=== PATIENT | male | born 1965 | race Caucasian/White ===

== ENCOUNTER 2017-12-03 00:18 | Emergency (ER) | payer MEDICARE, OTHER ==
[2017-12-03 00:19] VITALS: BMI 29.0
[2017-12-03 00:37] VITALS: RESP 18
[2017-12-03 00:43] VITALS: TEMP 98; O2SAT 97
--- NOTE | 2017-12-03 01:06 | ED PDOC ---
Arrival/HPI - General Chief Complaint: High Blood Pressure Time Seen by Provider: 12/03/17 00:27 Historian: Patient, Family (Son) - History of Present Illness Narrative History of Present Illness (Text): 12/03/17 00:59 A 52 year old male, whose past medical history includes hypertension, presents to the emergency department with his son, who served as a infection control rn, complaining of an episode of high blood pressure s/p and argument with his this evening. The patient notes that he stopped taking blood pressure medication for the past 3-4 years. He states that he saw his PMD 10 days ago and was placed on Losartan because his blood pressure was high. The patient states that the medication made him tired and dropped his blood pressure too low , so he has not taken it since then. This evening, he and his had an argument and states that he became red in the face. His son took his blood pressure which was 160/110 at the time. He states that his blood pressure came down and he feels almost back to normal. His blood pressure was 167/93 upon arrival to the emergency department. The patient states that he has an appointment with his PMD for new blood pressure medication tomorrow. The patient denies fevers, chills, headache, dizziness, chest pain, shortness of breath, dyspnea on exertion, cough, abdominal pain, nausea, vomiting, diarrhea, back pain, neck pain, urinary/bowel changes, or any other complaint. PMD: Dr. Mac Rose Time/Duration: Prior to Arrival Symptom Onset: Sudden Symptom Course: Unchanged Activities at Onset: Rest, Light Context: Home Past Medical History - Provider Review Nursing Documentation Reviewed: Yes - Infectious Disease Hx of Infectious Diseases: None - Tetanus Immunization Tetanus Immunization: Unknown - Cardiac Hx Hypertension: Yes - Pulmonary Hx Respiratory Disorders: No - Neurological Hx Neurological Disorder: No - HEENT Hx HEENT Disorder: No - Renal Hx Renal Disorder: Yes Hx Kidney Stones: Yes (multiple 0.5 mm which have passed .) - Endocrine/Metabolic Hx Endocrine Disorders: No - Hematological/Oncological Hx Blood Disorders: No - Integumentary Hx Dermatological Disorder: No - Musculoskeletal/Rheumatological Hx Musculoskeletal Disorders: No - Gastrointestinal Hx Gastrointestinal Disorders: No - Genitourinary/Gynecological Hx Genitourinary Disorders: No - Psychiatric Hx Psychophysiologic Disorder: No Hx Anxiety: No Hx Bipolar Disorder: No Hx Depression: No Hx Emotional Abuse: No Hx Hallucinations: No Hx Panic Disorder: No Hx Post Traumatic Stress Disorder: No Hx Psychosis: No Hx Physical Abuse: No Hx Schizophrenia: No Hx Sexual Abuse: No Hx Substance Use: No - Surgical History Hx Cholecystectomy: Yes Hx Coronary Artery Bypass Graft: Yes (quadruple bypass x4) - Anesthesia Hx Anesthesia: Yes Hx Anesthesia Reactions: No Hx Malignant Hyperthermia: No - Suicidal Assessment Feels Threatened In Home Enviroment: No Family/Social History - Physician Review Nursing Documentation Reviewed: Yes Family/Social History: No Known Family HX Smoking Status: Never Smoked Hx Alcohol Use: No Hx Substance Use: No Hx Substance Use Treatment: No Allergies/Home Meds Allergies/Adverse Reactions: Allergies No Known Allergies Allergy (Verified 12/03/17 00:38) Home Medications: Home Meds Medication Instructions Recorded Confirmed Aspirin [Aspirin Chewable] 81 mg PO DAILY 01/01/16 12/03/17 Simvastatin [Zocor] 40 mg PO DAILY 01/01/16 12/03/17 Gemfibrozil 600 mg PO BID 09/09/16 12/03/17 Losartan Potassium 50 mg PO DAILY 12/03/17 12/03/17 Review of Systems - Physician Review All systems were reviewed & negative as marked: Yes - Review of Systems Constitutional: Other (High Blood Pressure). absent: Fevers, Night Sweats Respiratory: absent: SOB, Cough Cardiovascular: absent: Chest Pain, CHANDLER Gastrointestinal: absent: Abdominal Pain, Stool Changes, Diarrhea, Nausea, Vomiting Genitourinary Male: absent: Urinary Output Changes Musculoskeletal: absent: Back Pain, Neck Pain Neurological: absent: Headache, Dizziness Physical Exam Vital Signs Reviewed: Yes Vital Signs Temp Pulse Resp BP Pulse Ox 12/03/17 01:47 61 18 132/79 97 12/03/17 01:10 65 132/79 12/03/17 00:42 98.0 F 67 18 159/96 H 97 12/03/17 00:31 74 18 172/95 H 100 Temperature: Afebrile Blood Pressure: Hypertensive Pulse: Regular Respiratory Rate: Normal Appearance: Positive for: Well-Appearing, Non-Toxic, Comfortable Pain Distress: None Mental Status: Positive for: Alert and Oriented X 3 - Systems Exam Head: Present: Atraumatic, Normocephalic Pupils: Present: PERRL Extroacular Muscles: Present: EOMI Conjunctiva: Present: Normal Mouth: Present: Moist Mucous Membranes Neck: Present: Normal Range of Motion Respiratory/Chest: Present: Clear to Auscultation, Good Air Exchange. No: Respiratory Distress, Accessory Muscle Use Cardiovascular: Present: Regular Rate and Rhythm, Normal S1, S2. No: Murmurs Abdomen: No: Tenderness, Distention, Peritoneal Signs Back: Present: Normal Inspection Upper Extremity: Present: Normal Inspection. No: Cyanosis, Edema Lower Extremity: Present: Normal Inspection. No: Edema Neurological: Present: GCS=15, CN II-XII Intact, Speech Normal Skin: Present: Warm, Dry, Normal Color. No: Rashes Psychiatric: Present: Alert, Oriented x 3, Normal Insight, Normal Concentration Medical Decision Making ED Course and Treatment: 12/03/17 01:07 Impression: A 52 year old male presents to the emergency department complaining of an episode of high blood pressure this evening. Plan: -- Chest X-ray -- Labs -- Catapres -- Reassess and disposition Progress Notes: 12/03/17 02:24: Chest X-ray read and interpreted by me shows no acute processes. 12/03/17 02:25: Patient's labs are normal. Patient's blood pressure has decreased while in the emergency department with medications. Will discharge patient home. 12/03/17 02:29 EKG: Ordered, reviewed, and independently interpreted the EKG. Rate : 59 BPM Rhythm : Sinus Bradycardia - Lab Interpretations Lab Results: 12/03/17 01:40 12/03/17 01:40 Lab Results 12/03/17 01:40: Sodium 146, Potassium 3.8, Chloride 108 H, Carbon Dioxide 25, Anion Gap 17, BUN 12, Creatinine 0.9, Est GFR ( Amer) > 60, Est GFR (Non- Af Amer) > 60, Random Glucose 100, Calcium 9.0, Total Bilirubin 0.9, AST 31, ALT 46, Alkaline Phosphatase 55, Lactate Dehydrogenase 465, Total Creatine Kinase 117, Troponin I < 0.01 D, Total Protein 6.8, Albumin 4.3, Globulin 2.5, Albumin/Globulin Ratio 1.7 12/03/17 01:40: PT 12.6 H, INR 1.10 H 12/03/17 01:40: WBC 5.7, RBC 4.85, Hgb 14.2, Hct 40.8 L, MCV 84.1, MCH 29.3, MCHC 34.8, RDW 12.7, Plt Count 131, MPV 10.9, Gran % 52.6, Lymph % (Auto) 37.5 H , [place] % (Auto) 8.1 H, Eos % (Auto) 1.4 L, Baso % (Auto) 0.4, Gran # 2.98, Lymph # (Auto) 2.1, [place] # (Auto) 0.5, Eos # (Auto) 0.1, Baso # (Auto) 0.02 I have reviewed the lab results: Yes - RAD Interpretation Radiology Orders: 12/03/17 00:51 CHEST PORTABLE [RAD] Stat - Medication Orders Current Medication Orders: Discontinued Medications Clonidine HCl (Catapres) 0.2 mg PO STAT STA Stop: 12/03/17 00:51 Last Admin: 12/03/17 01:10 Dose: 0.2 mg MAR Pulse and Blood Pressure Document 12/03/17 01:10 RG (Rec: 12/03/17 01:43 RG [facility] [id number] Pulse Pulse Rate (60-90 beats/min) 65 Blood Pressure Blood Pressure (100/60-150/90 mm Hg) 132/79 - Scribe Statement The provider has reviewed the documentation as recorded by the Scribe Netta Jasso Provider Scribe Attestation: All medical record entries made by the Scribe were at my direction and personally dictated by me. I have reviewed the chart and agree that the record accurately reflects my personal performance of the history, physical exam, medical decision making, and the department course for this patient. I have also personally directed, reviewed, and agree with the discharge instructions and disposition. Disposition/Present on Arrival - Present on Arrival Any Indicators Present on Arrival: No History of DVT/PE: No History of Uncontrolled Diabetes: No Urinary Catheter: No History of Decub. Ulcer: No History Surgical Site Infection Following: None - Disposition Have Diagnosis and Disposition been Completed?: Yes Diagnosis: Uncontrolled hypertension Disposition: HOME/ ROUTINE Disposition Time: :43 Patient Plan: Discharge Condition: GOOD Discharge Instructions (ExitCare): High Blood Pressure (DC) Additional Instructions: Mr Jain - Elkin you are going through all this right now. Please see your doctor tomorrow and get a new prescription for your Blood Pressure. Return to us if any problems. Timmy- Dr. Evan Judge Forms: [employer] (Swedish)
[2017-12-03 01:43] VITALS: BP 132/79
[2017-12-03 01:48] VITALS: PULSE 61
[2017-12-03 01:51] LABS: BASO # 0.02 K/mm3 (0.0-2.0); BASO % 0.4 % (0.0-3.0); EOS # 0.1 (0.0-0.7); EOS % 1.4 % (1.5-5.0); GRAN # 2.98 (1.4-6.5); GRAN % 52.6 % (50.0-68.0); HEMOGLOBIN 14.2 g/dL (14.0-18.0); LYMPH # 2.1 (1.2-3.4); LYMPH % 37.5 % (22.0-35.0); MEAN CELL VOLUME 84.1 fl (80.0-105.0); MEAN CORPUSCULAR HEMOGLOBIN 29.3 pg (25.0-35.0); MEAN CORPUSCULAR HGB CONC 34.8 g/dl (31.0-37.0); MEAN PLATELET VOLUME 10.9 fl (7.0-11.0); MONO # 0.5 (0.1-0.6); MONO % 8.1 % (1.0-6.0); RBC 4.85 10^6/uL (3.5-6.1); RED CELL DISTRIBUTION WIDTH 12.7 % (11.5-14.5); WHITE BLOOD COUNT 5.7 10^3/ul (4.5-11.0)
[2017-12-03 02:03] LABS: ALB/GLOB RATIO 1.7 (1.1-1.8); ALBUMIN 4.3 g/dL (3.0-4.8); ALT/SGPT 46 U/L (7-56); AST/SGOT 31 U/L (17-59); BLOOD UREA NITROGEN 12 mg/dL (7-21); GFR AFRICAN-AMERICAN > 60; GFR NON-AFRICAN AMERICAN > 60
[2017-12-03 02:12] LABS: INR 1.1 (0.93-1.08); PROTHROMBIN TIME 12.6 SECONDS (9.4-12.5)
[2017-12-03 02:14] LABS: TROPONIN I < 0.01 ng/mL
--- NOTE | 2017-12-03 08:45 | RAD ---
HISTORY: uncontrolled hypertension COMPARISON: 10/23/2014 FINDINGS: LUNGS: The lungs are clear. PLEURA: No significant pleural effusion identified, no pneumothorax apparent. CARDIOVASCULAR: The heart is normal in size. Status post CABG with OSSEOUS STRUCTURES: No significant abnormalities. VISUALIZED UPPER ABDOMEN: Normal. OTHER FINDINGS: None. IMPRESSION: No acute findings.
--- NOTE | 2017-12-03 13:52 | CARD ---
APPROVED REPORT EKG Measurement Heart [id number] [id number] <Conclusion> Sinus bradycardia RSR' or QR pattern in V1 suggests right ventricular conduction delay Borderline ECG
== END 2017-12-03 02:50 | disposition home or self-care (01) ==
LOC: ED 00:18
DX: I10 Essential (primary) hypertension (principal); Z95.1 Presence of aortocoronary bypass graft

== ENCOUNTER 2018-02-01 16:02 | Emergency (ER) | payer MEDICARE, OTHER ==
[2018-02-01 16:02] VITALS: BMI 29.0
[2018-02-01 16:11] VITALS: RESP 18; TEMP 98.7
[2018-02-01 17:12] LABS: BASO # 0.01 K/mm3 (0.0-2.0); BASO % 0.2 % (0.0-3.0); EOS # 0.1 (0.0-0.7); EOS % 1.3 % (1.5-5.0); GRAN # 3.19 (1.4-6.5); GRAN % 60.5 % (50.0-68.0); LYMPH # 1.6 (1.2-3.4); MEAN CELL VOLUME 84.6 fl (80.0-105.0); MEAN CORPUSCULAR HEMOGLOBIN 29.2 pg (25.0-35.0); MEAN CORPUSCULAR HGB CONC 34.6 g/dl (31.0-37.0); MEAN PLATELET VOLUME 11.4 fl (7.0-11.0); MONO # 0.4 (0.1-0.6); RBC 5.13 10^6/uL (3.5-6.1); RED CELL DISTRIBUTION WIDTH 12.6 % (11.5-14.5); URINE BILIRUBIN NEGATIVE (NEGATIVE); URINE BLOOD NEGATIVE (NEGATIVE); URINE GLUCOSE (UA) NEGATIVE (NEGATIVE); URINE LEUKOCYTE ESTERASE NEGATIVE Leu/uL (NEGATIVE); URINE PROTEIN NEGATIVE mg/dL (<30 mg/dL); URINE UROBILINOGEN 0.2 E.U./dL (<1 E.U./dL); WHITE BLOOD COUNT 5.3 10^3/ul (4.5-11.0)
[2018-02-01 17:13] LABS: URINE APPEARANCE CLEAR (CLEAR); URINE COLOR YELLOW (YELLOW)
--- NOTE | 2018-02-01 17:16 | ED PDOC ---
Arrival/HPI - General Chief Complaint: High Blood Pressure Time Seen by Provider: 02/01/18 16:12 Historian: Patient - History of Present Illness Narrative History of Present Illness (Text): 02/01/18 17:21 52yo male with pmhx of hypertension on Enalapril presnt with complaint of elevated BP. states he became nauseous and started having burning abdominal pain after eating Falafal this morning. States he bought it and thinks it was spoilt. He checked his BP then and it was 180/110. He reports taking his BP at 1300 this afternoon before checking his BP. States he put his finger and forced himself to vomit while he was in ED and felt a little better. He denies chest pain, SOB, diaphoresis, diarrhea, melena, hematemesis, back pain, headache, focal weakness, urinary/fecal incontinence, any other complaint. Past Medical History - Provider Review Nursing Documentation Reviewed: Yes - Infectious Disease Hx of Infectious Diseases: None - Tetanus Immunization Tetanus Immunization: Unknown - Cardiac Hx Hypertension: Yes - Pulmonary Hx Respiratory Disorders: No - Neurological Hx Neurological Disorder: No - HEENT Hx HEENT Disorder: No - Renal Hx Renal Disorder: Yes Hx Kidney Stones: Yes (multiple 0.5 mm which have passed .) - Endocrine/Metabolic Hx Endocrine Disorders: No - Hematological/Oncological Hx Blood Disorders: No - Integumentary Hx Dermatological Disorder: No - Musculoskeletal/Rheumatological Hx Musculoskeletal Disorders: No - Gastrointestinal Hx Gastrointestinal Disorders: No - Genitourinary/Gynecological Hx Genitourinary Disorders: No - Psychiatric Hx Psychophysiologic Disorder: No Hx Substance Use: No - Surgical History Hx Cholecystectomy: Yes Hx Coronary Artery Bypass Graft: Yes (quadruple bypass x4) Hx Open Heart Surgery: Yes - Anesthesia Hx Anesthesia: Yes Hx Anesthesia Reactions: No Hx Malignant Hyperthermia: No - Suicidal Assessment Feels Threatened In Home Enviroment: No Family/Social History - Physician Review Nursing Documentation Reviewed: Yes Family/Social History: Unknown Family HX Smoking Status: Never Smoked Hx Alcohol Use: No Hx Substance Use: No Hx Substance Use Treatment: No Allergies/Home Meds Allergies/Adverse Reactions: Allergies No Known Allergies Allergy (Verified 02/01/18 16:12) Home Medications: Home Meds Medication Instructions Recorded Confirmed Simvastatin [Zocor] 40 mg PO DAILY 01/01/16 02/01/18 Gemfibrozil 600 mg PO BID 09/09/16 02/01/18 Enalapril Maleate [Vasotec] 1 tab PO DAILY 02/01/18 02/01/18 Review of Systems - Physician Review All systems were reviewed & negative as marked: Yes - Review of Systems Constitutional: Normal, Other (Elevated BP) Eyes: Normal ENT: Normal Respiratory: Normal Cardiovascular: Normal Gastrointestinal: Abdominal Pain, Nausea, Vomiting. absent: Constipation, Diarrhea, Hematochezia, Hematemesis Genitourinary Male: Normal Musculoskeletal: Normal Skin: Normal Neurological: Normal Endocrine: Normal Hemo/Lymphatic: Normal Psychiatric: Normal Physical Exam Vital Signs Reviewed: Yes Vital Signs Temp Pulse Resp BP Pulse Ox 02/01/18 17:44 72 18 147/73 99 02/01/18 16:53 84 161/100 H 02/01/18 16:07 98.7 F 84 18 161/100 H 98 Temperature: Afebrile Blood Pressure: Hypertensive Pulse: Regular Respiratory Rate: Normal Appearance: Positive for: Well-Appearing, Non-Toxic, Comfortable Pain Distress: None Mental Status: Positive for: Alert and Oriented X 3 - Systems Exam Head: Present: Atraumatic, Normocephalic Pupils: Present: PERRL Extroacular Muscles: Present: EOMI Conjunctiva: Present: Normal Mouth: Present: Moist Mucous Membranes Neck: Present: Normal Range of Motion Respiratory/Chest: Present: Clear to Auscultation, Good Air Exchange. No: Respiratory Distress, Accessory Muscle Use Cardiovascular: Present: Regular Rate and Rhythm, Normal S1, S2. No: Murmurs Abdomen: Present: Other (Soft). No: Tenderness, Distention, Peritoneal Signs, Rebound, Guarding, McBurney's Point Tender, Rovsing's Sign Present Back: Present: Normal Inspection Upper Extremity: Present: Normal Inspection. No: Cyanosis, Edema Lower Extremity: Present: Normal Inspection. No: Edema Neurological: Present: GCS=15, CN II-XII Intact, Speech Normal Skin: Present: Warm, Dry, Normal Color. No: Rashes Psychiatric: Present: Alert, Oriented x 3, Normal Insight, Normal Concentration Medical Decision Making ED Course and Treatment: 02/01/18 18:11 pt present to ED for stated history. He was hemodynamically stable and neurologically intact. He denied headache, CP, slurred speech, focal weakness in ED. His BP improved to 131/70 in ED with medication. His lab was unremarkable. He states he feels much better. He was advised to f/u with his PMD for possible change or increase of her antihypertensive dose. EKG NSR with incomplete RBBB @79bpm CXR NAD - Lab Interpretations Lab Results: 02/01/18 17:05 02/01/18 17:05 Lab Results 02/01/18 17:05: Sodium 144, Potassium 3.7, Chloride 106, Carbon Dioxide 26, Anion Gap 16, BUN 10, Creatinine 0.8, Est GFR ( Amer) > 60, Est GFR (Non- Af Amer) > 60, Random Glucose 160 H, Calcium 9.4, Magnesium 2.2, Total Bilirubin 0.9, AST 25, ALT 41, Alkaline Phosphatase 51, Lactate Dehydrogenase 413, Total Creatine Kinase 83, Troponin I < 0.01, Total Protein 7.2, Albumin 4.5 , Globulin 2.8, Albumin/Globulin Ratio 1.6, Lipase 64 02/01/18 17:05: Urine Color Yellow, Urine Appearance Clear, Urine pH 6.0, Ur Specific [place] <= 1.005, Urine Protein Negative, Urine Glucose (UA) Negative, Urine Ketones Negative, Urine Blood Negative, Urine Nitrate Negative, Urine Bilirubin Negative, Urine Urobilinogen 0.2, Ur Leukocyte Esterase Negative 02/01/18 17:05: PT 12.2, INR 1.07, APTT 29.6 02/01/18 17:05: WBC 5.3, RBC 5.13, Hgb 15.0, Hct 43.4, MCV 84.6, MCH 29.2, MCHC 34.6, RDW 12.6, Plt Count 126, MPV 11.4 H, Gran % 60.5, Lymph % (Auto) 30.0, [place] % (Auto) 8.0 H, Eos % (Auto) 1.3 L, Baso % (Auto) 0.2, Gran # 3.19, Lymph # (Auto) 1.6, [place] # (Auto) 0.4, Eos # (Auto) 0.1, Baso # (Auto) 0.01 - RAD Interpretation Radiology Orders: 02/01/18 16:35 CHEST PORTABLE [RAD] Stat - Medication Orders Current Medication Orders: Discontinued Medications Clonidine HCl (Catapres) 0.2 mg PO STAT STA Stop: 02/01/18 16:37 Last Admin: 02/01/18 16:53 Dose: 0.2 mg MAR Pulse and Blood Pressure Document 02/01/18 16:53 OCS (Rec: 02/01/18 16:53 OCS [id number]) Pulse Pulse Rate (60-90) 84 Blood Pressure Blood Pressure (100/60-150/90) 161/100 Famotidine (Pepcid) 20 mg IVP STAT STA Stop: 02/01/18 16:37 Last Admin: 02/01/18 16:53 Dose: 20 mg IVP Administration Document 02/01/18 16:53 OCS (Rec: 02/01/18 16:53 OCS [id number]) Charges for Administration # of IVP Administrations 1 Ondansetron HCl (Zofran Inj) 4 mg IVP STAT STA Stop: 02/01/18 17:32 Last Admin: 02/01/18 17:58 Dose: 4 mg IVP Administration Document 02/01/18 17:58 OCS (Rec: 02/01/18 17:59 OCS [id number]) Charges for Administration # of IVP Administrations 1 Disposition/Present on Arrival - Present on Arrival Any Indicators Present on Arrival: No History of DVT/PE: No History of Uncontrolled Diabetes: No Urinary Catheter: No History of Decub. Ulcer: No History Surgical Site Infection Following: None - Disposition Have Diagnosis and Disposition been Completed?: Yes Diagnosis: Hypertension, Abdominal pain Disposition: HOME/ ROUTINE Disposition Time: 18:10 Patient Plan: Discharge Condition: STABLE Discharge Instructions (ExitCare): Acute Abdomen (Belly Pain), Adult (DC), High Blood Pressure in Adults Additional Instructions: Follow up with your Doctor Return to ED for any new symptoms Referrals: Rose Watts MD [Family Provider] - Follow up with primary Forms: [employer] (Beninese)
[2018-02-01 17:21] LABS: ALB/GLOB RATIO 1.6 (1.1-1.8); ALBUMIN 4.5 g/dL (3.0-4.8); ALT/SGPT 41 U/L (7-56); AST/SGOT 25 U/L (17-59); BLOOD UREA NITROGEN 10 mg/dL (7-21); CALCIUM 9.4 mg/dL (8.4-10.5); GFR AFRICAN-AMERICAN > 60; GFR NON-AFRICAN AMERICAN > 60; LIPASE 64 U/L (23-300)
[2018-02-01 17:30] LABS: INR 1.07 (0.93-1.08); PARTIAL THROMBOPLASTIN TIME 29.6 Seconds (25.1-36.5); PROTHROMBIN TIME 12.2 SECONDS (9.4-12.5)
[2018-02-01 17:31] LABS: TROPONIN I < 0.01 ng/mL
[2018-02-01 18:31] VITALS: BP 125/70; PULSE 68; O2SAT 96
--- NOTE | 2018-02-01 18:32 | RAD ---
HISTORY: palpitation COMPARISON: 12/03/2017 FINDINGS: LUNGS: No active pulmonary disease. PLEURA: No significant pleural effusion identified, no pneumothorax apparent. CARDIOVASCULAR: Normal. OSSEOUS STRUCTURES: No significant abnormalities. VISUALIZED UPPER ABDOMEN: Normal. OTHER FINDINGS: None. IMPRESSION: No active disease.
--- NOTE | 2018-02-02 08:13 | CARD ---
APPROVED REPORT EKG Measurement Heart [id number] [id number] <Conclusion> Normal sinus rhythm Incomplete right bundle branch block LAHB Nonspecific ST and T wave abnormality Abnormal ECG
== END 2018-02-01 18:25 | disposition home or self-care (01) ==
LOC: ED 16:02
DX: I10 Essential (primary) hypertension (principal); R10.9 Unspecified abdominal pain; Z95.1 Presence of aortocoronary bypass graft
CPT/HCPCS: 71045; 80053; 81003; 82550; 83615; 83690; 83735; 84484; 85025; 85610; 85730; 93005; 96374; 96375; 99283; J2405

== ENCOUNTER 2018-09-15 21:45 | Observation (INO) | payer MEDICARE, MEDICAID ==
[2018-09-15 22:13] LABS: BASO # 0.01 K/mm3 (0.0-2.0); BASO % 0.2 % (0.0-3.0); EOS # 0.1 (0.0-0.7); EOS % 2.2 % (1.5-5.0); HEMOGLOBIN 14.4 g/dL (14.0-18.0); LYMPH # 2.2 (1.2-3.4); MEAN CORPUSCULAR HEMOGLOBIN 28.4 pg (25.0-35.0); MEAN CORPUSCULAR HGB CONC 34.2 g/dl (31.0-37.0); MEAN PLATELET VOLUME 11.5 fl (7.0-11.0); MONO # 0.6 (0.1-0.6); MONO % 10.6 % (1.0-6.0); RBC 5.07 10^6/uL (3.5-6.1); RED CELL DISTRIBUTION WIDTH 13.7 % (11.5-14.5); WHITE BLOOD COUNT 5.4 10^3/uL (4.5-11.0)
[2018-09-15 22:23] LABS: ALB/GLOB RATIO 1.6 (1.1-1.8); ALBUMIN 4.5 g/dL (3.0-4.8); ALT/SGPT 53 U/L (7-56); AST/SGOT 32 U/L (17-59); BLOOD UREA NITROGEN 14 mg/dL (7-21); CALCIUM 9.6 mg/dL (8.4-10.5); GFR NON-AFRICAN AMERICAN > 60
[2018-09-15 22:33] LABS: TROPONIN I < 0.01 ng/mL
--- NOTE | 2018-09-15 22:53 | ED PDOC ---
Arrival/HPI <SantaJohny - Last Filed: 09/15/18 23:02> - General Historian: Patient - History of Present Illness Narrative History of Present Illness (Text): 09/15/18 23:54 53-year-old male with a history of hypertension and hyperlipidemia and open heart surgery 5 years ago presents today with a sudden onset of left-sided chest pain radiating into the left arm and tightness in the left jaw. Patient states the chest pain started after getting into a verbal argument with his son over grades. Patient states he took one aspirin early this afternoon and 2 aspirin's when he developed the chest pain. Patient states he also took his blood pressure medication when he developed chest pain about 30-45 minutes prior to arrival. Patient denies abdominal pain. No nausea vomiting diarrhea or constipation. Patient denies shortness of breath. Patient states he is feeling better in the emergency room and denies chest pain at present time. <Di Jackman - Last Filed: 09/16/18 00:01> - General Chief Complaint: Chest Pain Time Seen by Provider: 09/15/18 21:50 Past Medical History - Provider Review Nursing Documentation Reviewed: Yes - Travel History Have you recently traveled outside [place] w/in the past 3 mons?: No - Infectious Disease Hx of Infectious Diseases: None - Tetanus Immunization Tetanus Immunization: Unknown - Cardiac Hx Hypertension: Yes - Pulmonary Hx Respiratory Disorders: No - Neurological Hx Neurological Disorder: No - HEENT Hx HEENT Disorder: No - Renal Hx Renal Disorder: Yes Hx Kidney Stones: Yes (multiple 0.5 mm which have passed .) - Endocrine/Metabolic Hx Endocrine Disorders: No - Hematological/Oncological Hx Blood Disorders: No - Integumentary Hx Dermatological Disorder: No - Musculoskeletal/Rheumatological Hx Musculoskeletal Disorders: No - Gastrointestinal Hx Gastrointestinal Disorders: No - Genitourinary/Gynecological Hx Genitourinary Disorders: No - Psychiatric Hx Psychophysiologic Disorder: No Hx Substance Use: No - Surgical History Hx Cholecystectomy: Yes Hx Coronary Artery Bypass Graft: Yes (quadruple bypass x4) Hx Open Heart Surgery: Yes - Anesthesia Hx Anesthesia: Yes Hx Anesthesia Reactions: No Hx Malignant Hyperthermia: No - Suicidal Assessment Feels Threatened In Home Enviroment: No <Di Jackman - Last Filed: 09/16/18 00:01> Family/Social History - Physician Review Nursing Documentation Reviewed: Yes Family/Social History: Unknown Family HX Smoking Status: Never Smoked Hx Alcohol Use: No Hx Substance Use: No Hx Substance Use Treatment: No <Di Jackman - Last Filed: 09/16/18 00:01> Allergies/Home Meds <SantaJohny - Last Filed: 09/15/18 23:02> <Di Jackman Rober - Last Filed: 09/16/18 00:01> Allergies/Adverse Reactions: Allergies No Known Allergies Allergy (Verified 02/01/18 16:12) Home Medications: Home Meds Medication Instructions Recorded Confirmed Simvastatin [Zocor] 40 mg PO DAILY 01/01/16 02/01/18 Gemfibrozil 600 mg PO BID 09/09/16 02/01/18 Enalapril Maleate [Vasotec] 1 tab PO DAILY 02/01/18 02/01/18 Review of Systems - Review of Systems Constitutional: absent: Fatigue, Fevers Respiratory: absent: SOB, Cough Cardiovascular: Chest Pain, Palpitations Gastrointestinal: absent: Abdominal Pain, Nausea, Vomiting Musculoskeletal: Arthralgias (left arm pain). absent: Back Pain, Neck Pain Skin: absent: Rash, Pruritis Neurological: absent: Headache, Dizziness Endocrine: Diaphoresis Psychiatric: absent: Anxiety, Depression, Suicidal Ideation <Di Jackman - Last Filed: 09/16/18 00:01> Physical Exam Vital Signs Temp Pulse Resp BP Pulse Ox 09/15/18 21:58 98.5 F 67 18 146/94 H 96 <SantaJohny - Last Filed: 09/15/18 23:02> Vital Signs Reviewed: Yes Vital Signs Temp Pulse Resp BP Pulse Ox 09/15/18 21:58 98.5 F 67 18 146/94 H 96 Temperature: Afebrile Blood Pressure: Hypertensive Pulse: Regular Respiratory Rate: Normal Appearance: Positive for: Well-Appearing, Non-Toxic, Comfortable Pain Distress: None Mental Status: Positive for: Alert and Oriented X 3 - Systems Exam Head: Present: Atraumatic Mouth: Present: Moist Mucous Membranes Neck: Present: Normal Range of Motion Respiratory/Chest: Present: Clear to Auscultation, Good Air Exchange. No: Respiratory Distress, Accessory Muscle Use Cardiovascular: Present: Regular Rate and Rhythm, Normal S1, S2. No: Murmurs Abdomen: No: Tenderness, Distention, Rebound, Guarding Back: Present: Normal Inspection Upper Extremity: Present: Normal ROM Lower Extremity: Present: Normal ROM. No: Edema Neurological: Present: GCS=15 Skin: Present: Warm, Dry, Normal Color. No: Rashes Psychiatric: Present: Alert, Oriented x 3 <Di Jackman - Last Filed: 09/16/18 00:01> Medical Decision Making - Lab Interpretations Lab Results: Troponin I < 0.01 ng/mL 09/15/18 22:09 Total Bilirubin 1.0 mg/dL (0.2-1.3) 09/15/18 22:09 AST 32 U/L (17-59) 09/15/18 22:09 ALT 53 U/L (7-56) 09/15/18 22:09 Alkaline Phosphatase 64 U/L (38-126) 09/15/18 22:09 Total Protein 7.3 g/dL (5.8-8.3) 09/15/18 22:09 Albumin 4.5 g/dL (3.0-4.8) 09/15/18 22:09 Globulin 2.8 gm/dL 09/15/18 22:09 Albumin/Globulin Ratio 1.6 (1.1-1.8) 09/15/18 22:09 - RAD Interpretation Radiology Orders: 09/15/18 22:05 CHEST PORTABLE [RAD] Stat <SantaJohny - Last Filed: 09/15/18 23:02> ED Course and Treatment: 09/15/18 23:57 pt with chest pain left arm pain and left-sided jaw tightness status post verbal argument with his son. slightly hypertensive in the emergency room cbc; wnl cmp; wnl trop: wnl ekg; normal sinus rhythm at [address] elevations QTC 394 cxr: wnl pt took 3 baby Aspirins today. Two prior to arrival to Er. pt reassessment; pt is non toxic well appearing; no distress. denies any complaints at present time. case discussed with Dr. murdock. will Admit observational status to Tele for chest pain r/o acs as patient with hx of open-heart surgery/quadruple bypass, hypertension, hyperlipidemia impression; chest pain Admit observational status to tele; Dr. Salazar Reassessment Condition: Re-examined, Improved - Lab Interpretations Lab Results: Troponin I < 0.01 ng/mL 09/15/18 22:09 Total Bilirubin 1.0 mg/dL (0.2-1.3) 09/15/18 22:09 AST 32 U/L (17-59) 09/15/18 22:09 ALT 53 U/L (7-56) 09/15/18 22:09 Alkaline Phosphatase 64 U/L (38-126) 09/15/18 22:09 Total Protein 7.3 g/dL (5.8-8.3) 09/15/18 22:09 Albumin 4.5 g/dL (3.0-4.8) 09/15/18 22:09 Globulin 2.8 gm/dL 09/15/18 22:09 Albumin/Globulin Ratio 1.6 (1.1-1.8) 09/15/18 22:09 - RAD Interpretation Radiology Orders: 09/15/18 22:05 CHEST PORTABLE [RAD] Stat <Di Jackman - Last Filed: 09/16/18 00:01> - PA / STUD [employer] / Resident Statement BRIGID has reviewed & agrees with the documentation as recorded. BRIGID has examined the patient and agrees with the treatment plan. <Johny Pratt - Last Filed: 09/15/18 23:02> Disposition/Present on Arrival <Johny Pratt - Last Filed: 09/15/18 23:02> - Present on Arrival Any Indicators Present on Arrival: No History of DVT/PE: No History of Uncontrolled Diabetes: No Urinary Catheter: No History of Decub. Ulcer: No History Surgical Site Infection Following: None - Disposition Have Diagnosis and Disposition been Completed?: Yes Disposition Time: 22:53 Patient Plan: Observation <Di Jackman - Last Filed: 09/16/18 00:01> - Disposition Diagnosis: Chest pain Disposition: HOSPITALIZED Patient Problems: Current Active Problems Problem Status Onset Chest pain Acute Condition: FAIR
--- NOTE | 2018-09-15 23:42 | CP.PCM.HP ---
History of Present Illness - History of Present Illness History of Present Illness: Satish Massey, PGY1 H&P for Dr. Garcia cc: chest pain Patient is a 53 y/o M with PMHx HTN, HLD, Nephrolithiasis, CAD with CABG (2013) who presented to the ED for chest pain. In the ED, Vitals: Temp 98.5, HR 67, RR 18, BP 146/94, SaO2 96%. Medical team was consulted for evaluation. Patient described chest pain that started when he was having an argument with his son. He described his chest pain as pressure-like and radiating to the shoulder. He also experienced some shortness of breath and diaphoresis during this time. Patient took x2 aspirins at home and came to the ED to be evaluated. He said his chest pain has improved since he came. He has not had any episodes of chest pain like this since his CABG in 2013. He does not have any recent decline in exercise tolerance. Denies headache, fever, chills, n/v/d, abdominal pain, numbn ess/tingling in extremities. A full 12 point ROS was conducted and unremarkable except as stated above. PMD: Dr. Watts Fuel Operator: Dr. Diez PMHx: HTN, HLD, Nephrolithiasis, CAD with CABG (2013) PSHx: Cholecystectomy, CABG Meds: see OCT Allergies: NKDA FamHx: significant premature CAD: mother had CABG, father at 71 from [place], Brother at 50 from [place] SocialHx: denies smoking, EtOH, and recreational drug use. Lives at home with family. Present on Admission - Present on Admission Any Indicators Present on Admission: No Review of Systems - Review of Systems All systems: reviewed and no additional remarkable complaints except (as per HPI) Past Patient History - Infectious Disease Hx of Infectious Diseases: None - Tetanus Immunizations Tetanus Immunization: Unknown - Past Medical History & Family History Past Medical History?: Yes - Past Social History Smoking Status: Never Smoked - CARDIAC Hx Hypertension: Yes - PULMONARY Hx Respiratory Disorders: No - NEUROLOGICAL Hx Neurological Disorder: No - HEENT Hx HEENT Problems: No - RENAL Hx Chronic Kidney Disease: Yes Hx Kidney Stones: Yes (multiple 0.5 mm which have passed .) - ENDOCRINE/METABOLIC Hx Endocrine Disorders: No - HEMATOLOGICAL/ONCOLOGICAL Hx Blood Disorders: No - INTEGUMENTARY Hx Dermatological Problems: No - MUSCULOSKELETAL/RHEUMATOLOGICAL Hx Musculoskeletal Disorders: No - GASTROINTESTINAL Hx Gastrointestinal Disorders: No - GENITOURINARY/GYNECOLOGICAL Hx Genitourinary Disorders: No - PSYCHIATRIC Hx Psychophysiologic Disorder: No Hx Substance Use: No - SURGICAL HISTORY Hx Cholecystectomy: Yes Hx Coronary Artery Bypass Graft: Yes (quadruple bypass x4) Hx Open Heart Surgery: Yes - ANESTHESIA Hx Anesthesia: Yes Hx Anesthesia Reactions: No Hx Malignant Hyperthermia: No Meds Allergies/Adverse Reactions: Allergies Allergy/AdvReac Type Severity Reaction Status Date / Time No Known Allergies Allergy Verified 02/01/18 16:12 Physical Exam - Constitutional Appears: No Acute Distress - Head Exam Head Exam: ATRAUMATIC, NORMAL INSPECTION, NORMOCEPHALIC - Eye Exam Eye Exam: EOMI, Normal appearance Pupil Exam: NORMAL ACCOMODATION, PERRL - ENT Exam ENT Exam: Mucous Membranes Moist, Normal Exam - Respiratory Exam Respiratory Exam: Clear to Auscultation Bilateral, NORMAL BREATHING PATTERN. absent: Accessory Muscle Use, Chest Wall Tenderness, Rales, Rhonchi, Wheezes - Cardiovascular Exam Cardiovascular Exam: RRR, +S1, +S2 Additional comments: Chest pain is not reproducible. - GI/Abdominal Exam GI & Abdominal Exam: Normal Bowel Sounds, Soft. absent: Guarding, Rebound, Rigid, Tenderness - Extremities Exam Extremities exam: Positive for: normal capillary refill, normal inspection, pedal pulses present - Back Exam Back exam: NORMAL INSPECTION - Neurological Exam Neurological exam: Alert, CN II-XII Intact, Normal Gait, Oriented x3, Reflexes Normal - Psychiatric Exam Psychiatric exam: Normal Affect, Normal Mood - Skin Skin Exam: Dry, Intact, Normal Color, Warm Results - Vital Signs Recent Vital Signs: Last Vital Signs Temp 98.5 F 09/15/18 21:58 Pulse 67 09/15/18 21:58 Resp 18 09/15/18 21:58 BP 146/94 H 09/15/18 21:58 Pulse Ox 96 09/15/18 21:58 - Labs Result Diagrams: 09/15/18 22:09 09/15/18 22:09 Labs: Laboratory Results - last 24 hr 09/15/18 09/15/18 22:09 22:09 WBC 5.4 RBC 5.07 Hgb 14.4 Hct 42.1 MCV 83.0 MCH 28.4 MCHC 34.2 RDW 13.7 Plt Count 138 MPV 11.5 H Neut % (Auto) 46.0 L Lymph % (Auto) 41.0 H Parker % (Auto) 10.6 H Eos % (Auto) 2.2 Baso % (Auto) 0.2 Lymph # (Auto) 2.2 Parker # (Auto) 0.6 Eos # (Auto) 0.1 Baso # (Auto) 0.01 Absolute Neuts (auto) 2.46 Sodium 140 Potassium 3.9 Chloride 106 Carbon Dioxide 26 Anion Gap 12 BUN 14 Creatinine 1.1 Est GFR ( Amer) > 60 Est GFR (Non-Af Amer) > 60 Random Glucose 104 Calcium 9.6 Magnesium 2.2 Total Bilirubin 1.0 AST 32 ALT 53 Alkaline Phosphatase 64 Lactate Dehydrogenase 479 Total Creatine Kinase 71 Troponin I < 0.01 Total Protein 7.3 Albumin 4.5 Globulin 2.8 Albumin/Globulin Ratio 1.6 Assessment & Plan - Assessment and Plan (Free Text) Assessment: Patient is a 53 y/o M with PMHx HTN, HLD, Nephrolithiasis, CAD with CABG (2013) who presented to the ED for chest pain after having an argument with his son. Patient will be admitted to telemetry for chest pain - r/o ACS. Plan: Chest Pain 2/2 Emotional Stressor - r/o ACS - trop negative x1; trend trops - sublingual nitroglycerin prn - acetaminophen prn - Lipid panel - Hgb A1c - repeat EKG in the morning - Cardio consulted (Dr. Gaspar) - Although chest pain was associated with emotional stressor (argument with son), patient has significant risk factors such as HTN, HLD, CAD with CABG, and premature CAD in family that requires further evaluation - EKG: NSR at [address] or T wave changes. - CXR: no active cardiopulmonary disease. Sternotomy wires visible. Hx CAD with CABG - Aspirin 81mg daily - CABG was in October 2013 - Last stress test was in 08/2016 which showed no evidence of ischemia Hx HTN - Lisinopril 5mg daily Hx HLD - Lipitor 20mg qHS DVT ppx: hep sc GI ppx: ptx Diet: HHD Dispo: Patient will be monitored on telemetry. Follow up serial troponins and recommendations as per cardiology. Case was discussed and reviewed by Attending Physician, Dr. Garcia
[2018-09-16 02:19] VITALS: BMI 34.4
[2018-09-16 03:43] VITALS: O2SAT 96
[2018-09-16] MEDS ORDERED: Pantoprazole 40 mg EC Tab PO SCH (06:00)
[2018-09-16 07:03] LABS: HDL CHOLESTEROL 30 mg/dL (29-60)
[2018-09-16 07:22] LABS: LDL CHOLESTEROL 95 mg/dL (0-129)
--- NOTE | 2018-09-16 09:23 | RAD ---
Date of service: 09/15/2018 HISTORY: Chest pain COMPARISON: Comparison chest the 02/01/2018 FINDINGS: LUNGS: No active pulmonary disease. PLEURA: No significant pleural effusion identified, no pneumothorax apparent. CARDIOVASCULAR: Sternotomy wires and CABG clips again noted. Heart size within range of normal. No aortic atherosclerotic calcification present. OSSEOUS STRUCTURES: No significant abnormalities. VISUALIZED UPPER ABDOMEN: Normal. OTHER FINDINGS: None. IMPRESSION: No active disease
--- NOTE | 2018-09-16 11:20 | CARD ---
APPROVED REPORT Date of service: 09/16/2018 EKG Measurement Heart [id number] [id number] <Conclusion> Normal sinus rhythm RSR' or QR pattern in V1
--- NOTE | 2018-09-16 11:30 | CARD ---
APPROVED REPORT Date of service: 09/15/2018 EKG Measurement Heart [id number] <Conclusion> Normal sinus rhythm RSR' or QR pattern in V1.
[2018-09-16 12:11] VITALS: BP 126/80; RESP 21; TEMP 98.1
[2018-09-16 15:02] VITALS: PULSE 70
--- NOTE | 2018-09-16 19:57 | CARD ---
APPROVED REPORT Date of service: 09/16/2018 EXAM: Two-dimensional and M-mode echocardiogram with Doppler and color Doppler. INDICATION Chest Pain 2D DIMENSIONS Left Atrium (2D)3.8 (1.6-4.0cm)IVSd1.2 (0.7-1.1cm) LVDd4.2 (3.9-5.9cm)PWd1.2 (0.7-1.1cm) LVDs2.9 (2.5-4.0cm)FS (%) 31.7 % LVEF (%)60.1 (>50%) M-Mode DIMENSIONS Aortic Root2.20 (2.2-3.7cm)Aortic Cusp Exc.1.70 (1.5-2.0cm) Aortic Valve AoV Peak Pydlaeai695.0cm/[place] GR.7mmHg Mitral Valve MV E Qnrznrdp94.6cm/sMV A Ncubttcg86.5cm/sE/A ratio1.1 TDI E/Lateral E'0.0E/Medial E'0.0 Tricuspid Valve TR Peak [id number]/sRAP [id number] Peak Gr.22mmHg [id number] LEFT VENTRICLE The left ventricle is normal size. There is mild concentric left ventricular hypertrophy. Proximal septal thickening is noted. The left ventricular function is normal.EFV-55-60% There is normal LV segmental wall motion. The left ventricular diastolic function is normal. No left ventricle thrombus noted on this study. There is no ventricular septal defect visualized. There is no left ventricular aneurysm. There is no mass noted in the left ventricle. RIGHT VENTRICLE The right ventricle is normal size. There is normal right ventricular wall thickness. The right ventricular systolic function is normal. ATRIA The left atrium size is normal. The right atrium size is normal. The interatrial septum is intact with no evidence for an atrial septal defect. AORTIC VALVE The aortic valve is mildly to moderately thickened. There is trace aortic regurgitation. There is no aortic valvular stenosis. There is no aortic valvular vegetation. MITRAL VALVE The mitral valve is thickened but opens well. Mitral regurgitation is trace. There is no mitral valve stenosis. There is no evidence of mitral valve prolapse. TRICUSPID VALVE The tricuspid valve leaflets are thickened , but open well. There is trace to mild tricuspid regurgitation.RVSP-32 mmof HG. There is no tricuspid valve stenosis. There is no tricuspid valve prolapse or vegetation. PULMONIC VALVE The pulmonic valve is borderline thickened. There is trace pulmonic valvular regurgitation. There is no pulmonic valvular stenosis. GREAT VESSELS The aortic root is normal in size. The ascending aorta is normal in size. The pulmonary artery is normal. The IVC is normal in size and collapses >50% with inspiration. PERICARDIAL EFFUSION There is no pleural effusion. There is no pericardial effusion. <Conclusion> Normal Chamber size. EF-55-60% TRACE MR/PI/AR. There is trace to mild tricuspid regurgitation.RVSP-32 mmof HG. The IVC is normal in size and collapses >50% with inspiration. There is no pericardial effusion.
--- NOTE | 2018-09-16 20:29 | CON ---
DATE: 09/16/2018 REASON FOR CONSULTATION: Chest pain, history of coronary artery disease, CABG in 2013. BRIEF CLINICAL HISTORY: This is 53-year-old male with past medical history significant for hypertension, hyperlipidemia, coronary artery disease status post CABG 14 years ago, who has stressful situation at home. Argument with the son, after that the patient felt tightness in the chest and shortness of breath and came to the emergency room. Denied any chest pain, shortness of breath, or any palpitation. PAST MEDICAL HISTORY: Significant for coronary artery disease, CABG in 2013, being followed by Dr. Soto, has a stress test 6 months ago. Other son is at the bedside who gave the information and helped us in interpretation. The patient also has history of nephrolithiasis. PAST SURGICAL HISTORY: Significant for CABG, coronary artery bypass surgery in 2014 and history of cholecystectomy. CURRENT MEDICATIONS: The patient at home is taking simvastatin, gemfibrozil, and enalapril. REVIEW OF SYSTEMS: As per HPI. PHYSICAL EXAMINATION: GENERAL: Height of the patient 5 feet 7 inches, weight of the patient 220 pounds, body mass index 34.5 kg/m2. EKG shows normal sinus, heart rate of 60. VITAL SIGNS: Temperature afebrile, heart rate 60, and blood pressure 118/68. HEENT: PERRLA. Extraocular muscles intact. NECK: Supple. No carotid bruits or thyromegaly. CHEST: Clear to auscultation. HEART: S1 and S2 regular. ABDOMEN: Soft. EXTREMITIES: Clubbing and cyanosis, negative. LABORATORY DATA: Blood workup; WBC 5.4, hemoglobin 14.4, hematocrit 42.1, and platelet count 138. Chemistry shows sodium 140, potassium 3.9, chloride 108, carbon dioxide 26, anion gap of 12, BUN 14, creatinine 1.1, troponin 0.01, triglycerides 102, cholesterol 143, LDL 95, and HDL 30. IMPRESSION: A 53-year-old male, with the past medical history significant for coronary artery disease, coronary artery bypass grafting, hypertension, and hyperlipidemia, admitted after stressful situation in the home with the chest pain. So, the troponin remains negative. Electrocardiography is pretty benign. The patient had stress test 6 months ago. RECOMMENDATIONS: Resume previous medication, get another set of troponin. His troponin remains negative, the patient can be discharged, follow up with Dr. Soto. If the troponin remains positive, the patient . Otherwise, the patient will be followed up by medical treatment. Follow up with Dr. Soto. Thank you Dr. Salazar for providing us the opportunity in taking care of the patient, Humberto Jain. Maximo Sam MD
--- NOTE | 2018-09-16 21:08 | CP.PCM.DIS ---
<Yair Javier - Last Filed: 09/16/18 21:12> Provider - Provider Date of Admission: 09/15/18 23:03 Attending physician: Toby Bales MD Primary care physician: Rose Watts MD Consults: 09/16/18 01:01 Physician Consult Routine Comment: Consulting Provider: Maximo Gaspar Consulting Physician: Maximo Gaspar Reason for Consult: chest pain; Hx of CABG Time Spent in preparation of Discharge (in minutes): 35 Diagnosis - Discharge Diagnosis (1) Chest pain Status: Resolved Hospital Course - Lab Results Lab Results: Most Recent Lab Values WBC 5.4 10^3/uL (4.5-11.0) 09/15/18 22:09 RBC 5.07 10^6/uL (3.5-6.1) 09/15/18 22:09 Hgb 14.4 g/dL (14.0-18.0) 09/15/18 22:09 Hct 42.1 % (42.0-52.0) 09/15/18 22:09 MCV 83.0 fl (80.0-105.0) 09/15/18 22:09 MCH 28.4 pg (25.0-35.0) 09/15/18 22:09 MCHC 34.2 g/dl (31.0-37.0) 09/15/18 22:09 RDW 13.7 % (11.5-14.5) 09/15/18 22:09 Plt Count 138 10^3/uL (120.0-450.0) 09/15/18 22:09 MPV 11.5 fl (7.0-11.0) H 09/15/18 22:09 Neut % (Auto) 46.0 % (50.0-68.0) L 09/15/18 22:09 Lymph % (Auto) 41.0 % (22.0-35.0) H 09/15/18 22:09 Tillman % (Auto) 10.6 % (1.0-6.0) H 09/15/18 22:09 Eos % (Auto) 2.2 % (1.5-5.0) 09/15/18 22:09 Baso % (Auto) 0.2 % (0.0-3.0) 01/31/19 22:09 Lymph # (Auto) 2.2 (1.2-3.4) 09/15/18 22:09 Tillman # (Auto) 0.6 (0.1-0.6) 09/15/18 22:09 Eos # (Auto) 0.1 (0.0-0.7) 09/15/18 22:09 Baso # (Auto) 0.01 K/mm3 (0.0-2.0) 09/15/18 22:09 Absolute Neuts (auto) 2.46 (1.4-6.5) 09/15/18 22:09 Sodium 140 mmol/L (132-148) 09/15/18 22:09 Potassium 3.9 mmol/L (3.6-5.0) 09/15/18 22:09 Chloride 106 mmol/L (98-107) 09/15/18 22:09 Carbon Dioxide 26 mmol/L (21-33) 09/15/18 22:09 Anion Gap 12 (10-20) 09/15/18 22:09 BUN 14 mg/dL (7-21) 09/15/18 22:09 Creatinine 1.1 mg/dl (0.8-1.5) 09/15/18 22:09 Est GFR ( Amer) > 60 09/15/18 22:09 Est GFR (Non-Af Amer) > 60 09/15/18 22:09 Random Glucose 104 mg/dL (70-110) 09/15/18 22:09 Hemoglobin A1c 5.8 % (4.2-6.5) 09/16/18 06:30 Calcium 9.6 mg/dL (8.4-10.5) 09/15/18 22:09 Magnesium 2.2 mg/dL (1.7-2.2) 09/15/18 22:09 Total Bilirubin 1.0 mg/dL (0.2-1.3) 09/15/18 22:09 AST 32 U/L (17-59) 09/15/18 22:09 ALT 53 U/L (7-56) 09/15/18 22:09 Alkaline Phosphatase 64 U/L (38-126) 09/15/18 22:09 Lactate Dehydrogenase 479 U/L (333-699) 09/15/18 22:09 Total Creatine Kinase 71 U/L (35-230) 09/15/18 22:09 Troponin I < 0.01 ng/mL 09/16/18 11:10 Total Protein 7.3 g/dL (5.8-8.3) 09/15/18 22:09 Albumin 4.5 g/dL (3.0-4.8) 09/15/18 22:09 Globulin 2.8 gm/dL 09/15/18 22:09 Albumin/Globulin Ratio 1.6 (1.1-1.8) 09/15/18 22:09 Triglycerides 102 mg/dL (35-160) 09/16/18 06:30 Cholesterol 143 mg/dL (130-200) 09/16/18 06:30 LDL Cholesterol Direct 95 mg/dL (0-129) 09/16/18 06:30 HDL Cholesterol 30 mg/dL (29-60) 09/16/18 06:30 TSH 3rd Generation 1.23 mIU/mL (0.46-4.68) 09/16/18 11:10 - Hospital Course Hospital Course: Yair Javier DO, PGY-1 Hospitalist Discharge Summary for Dr. Bales Mr. Jain is a 53 year old male with PMH of HTN, HLD, Nephrolithiasis, CAD (s/p CABG in 2013) who presented to ED with mid-sternal chest pain. He described the pain at the time as a burning type sensation that radiated to his left arm. Initial troponin in ED was negative and EKG showed NSR without ST or T wave changes. He was subsequently admitted for observation to rule out acute coronary syndrome. Troponins were repeated 6 hours after initial x 2, both were negative. EKG was repeated this AM and showed no significant changes from prior EKG. Patient states this AM that since admission his chest pain has resolved. Dr. Sam, racecourse barrier attendant saw and examined patient. Cardiology recommended continuing current meds and stated no need for additional follow up. TTE was completed and showed LVEF of 55-60% with no other significant abnormalities. Patient was examined after final troponin came back negative and stated he feels better this morning and is ready to go home. All questions were answered. Patient seen, examined, and discharge plan discussed with my attending Dr. Amairani Javier D.O. IM Resident PGY-1 Discharge Exam - Head Exam Head Exam: ATRAUMATIC, NORMAL INSPECTION, NORMOCEPHALIC - Eye Exam Eye Exam: EOMI, Normal appearance, PERRL - ENT Exam ENT Exam: Mucous Membranes Moist - Neck Exam Neck exam: Full Rom, Normal Inspection - Respiratory Exam Respiratory Exam: Clear to PA & Lateral, NORMAL BREATHING PATTERN, UNREMARKABLE. absent: Accessory Muscle Use, Rales, Rhonchi, Wheezes, Respiratory Distress - Cardiovascular Exam Cardiovascular Exam: REGULAR RHYTHM, RRR, +S1, +S2. absent: Diastolic murmur, Gallop, Rubs, Systolic Murmur - GI/Abdominal Exam GI & Abdominal Exam: Normal Bowel Sounds, Soft. absent: Guarding, Tenderness - Extremities Exam Extremities exam: normal inspection - Back Exam Back exam: NORMAL INSPECTION - Neurological Exam Neurological exam: Alert, Oriented x3 - Psychiatric Exam Psychiatric exam: Normal Affect, Normal Mood - Skin Skin Exam: Dry, Intact, Warm Discharge Plan - Follow Up Plan Condition: FAIR Disposition: HOME/ ROUTINE Instructions: Chest Pain (DC), Chest Pain (DC), Chest Pain (GEN) Additional Instructions: Please follow up with your primary doctor within 1 week of discharge. Please follow up with your primary racecourse barrier attendant within 2 weeks of discharge. Please continue to take your home medications as prescribed. If your symptoms of chest pain return or worsen, please return to nearest ED. Referrals: Rose Watts MD [Primary Care Provider] - <Toby Bales - Last Filed: 09/17/18 08:10> Provider - Provider Date of Admission: 09/15/18 23:03 Attending physician: Toby Bales MD Primary care physician: Rose Watts MD Consults: 09/16/18 01:01 Physician Consult Routine Comment: Consulting Provider: Maximo Gaspar Consulting Physician: Maximo Gaspar Reason for Consult: chest pain; Hx of CABG Hospital Course - Lab Results Lab Results: Most Recent Lab Values WBC 5.4 10^3/uL (4.5-11.0) 09/15/18 22:09 RBC 5.07 10^6/uL (3.5-6.1) 09/15/18 22:09 Hgb 14.4 g/dL (14.0-18.0) 09/15/18 22:09 Hct 42.1 % (42.0-52.0) 09/15/18 22:09 MCV 83.0 fl (80.0-105.0) 09/15/18 22:09 MCH 28.4 pg (25.0-35.0) 09/15/18 22:09 MCHC 34.2 g/dl (31.0-37.0) 09/15/18 22:09 RDW 13.7 % (11.5-14.5) 09/15/18 22:09 Plt Count 138 10^3/uL (120.0-450.0) 09/15/18 22:09 MPV 11.5 fl (7.0-11.0) H 09/15/18 22:09 Neut % (Auto) 46.0 % (50.0-68.0) L 09/15/18 22:09 Lymph % (Auto) 41.0 % (22.0-35.0) H 09/15/18 22:09 Tillman % (Auto) 10.6 % (1.0-6.0) H 09/15/18 22:09 Eos % (Auto) 2.2 % (1.5-5.0) 09/15/18 22:09 Baso % (Auto) 0.2 % (0.0-3.0) 09/15/18 22:09 Lymph # (Auto) 2.2 (1.2-3.4) 09/15/18 22:09 Tillman # (Auto) 0.6 (0.1-0.6) 09/15/18 22:09 Eos # (Auto) 0.1 (0.0-0.7) 09/15/18 22:09 Baso # (Auto) 0.01 K/mm3 (0.0-2.0) 09/15/18 22:09 Absolute Neuts (auto) 2.46 (1.4-6.5) 09/15/18 22:09 Sodium 140 mmol/L (132-148) 09/15/18 22:09 Potassium 3.9 mmol/L (3.6-5.0) 09/15/18 22:09 Chloride 106 mmol/L (98-107) 09/15/18 22:09 Carbon Dioxide 26 mmol/L (21-33) 09/15/18 22:09 Anion Gap 12 (10-20) 09/15/18 22:09 BUN 14 mg/dL (7-21) 09/15/18 22:09 Creatinine 1.1 mg/dl (0.8-1.5) 09/15/18 22:09 Est GFR ( Amer) > 60 09/15/18 22:09 Est GFR (Non-Af Amer) > 60 09/15/18 22:09 Random Glucose 104 mg/dL (70-110) 09/15/18 22:09 Hemoglobin A1c 5.8 % (4.2-6.5) 09/16/18 06:30 Calcium 9.6 mg/dL (8.4-10.5) 09/15/18 22:09 Magnesium 2.2 mg/dL (1.7-2.2) 09/15/18 22:09 Total Bilirubin 1.0 mg/dL (0.2-1.3) 09/15/18 22:09 AST 32 U/L (17-59) 09/15/18 22:09 ALT 53 U/L (7-56) 09/15/18 22:09 Alkaline Phosphatase 64 U/L (38-126) 09/15/18 22:09 Lactate Dehydrogenase 479 U/L (333-699) 09/15/18 22:09 Total Creatine Kinase 71 U/L (35-230) 09/15/18 22:09 Troponin I < 0.01 ng/mL 09/16/18 11:10 Total Protein 7.3 g/dL (5.8-8.3) 09/15/18 22:09 Albumin 4.5 g/dL (3.0-4.8) 09/15/18 22:09 Globulin 2.8 gm/dL 09/15/18 22:09 Albumin/Globulin Ratio 1.6 (1.1-1.8) 09/15/18 22:09 Triglycerides 102 mg/dL (35-160) 09/16/18 06:30 Cholesterol 143 mg/dL (130-200) 09/16/18 06:30 LDL Cholesterol Direct 95 mg/dL (0-129) 09/16/18 06:30 HDL Cholesterol 30 mg/dL (29-60) 09/16/18 06:30 TSH 3rd Generation 1.23 mIU/mL (0.46-4.68) 09/16/18 11:10 Attending/Attestation - Attestation I have personally seen and examined this patient.: Yes I have fully participated in the care of the patient.: Yes I have reviewed all pertinent clinical information, including history, physical exam and plan: Yes Notes (Text): 09/16/18 53 year old male with past medical history of CAD s/p CABG and hypertension who presented with complaint of chest pain. Serial cardiac enzymes were negative and ACS was ruled out. Echocardiogram was reviewed. Patient also reports recent stress test. Patient was seen by cardiology and cleared for discharge. Patient is discharged home to follow up with pmd and cardiology. Son is at bedside and questions were answered. Toby Bales MD Hospitalist.
== END 2018-09-16 15:44 | disposition home or self-care (01) ==
LOC: ED 21:45 → ERH 23:03 → 2RNO 23:59
PROVIDERS: ADMIT Hospitalist; ATTEND Internal Medicine
DX: R07.89 Other chest pain (principal); I25.10 Atherosclerotic heart disease of native coronary artery without angina pectoris; I10 Essential (primary) hypertension; E78.5 Hyperlipidemia, unspecified; Z95.1 Presence of aortocoronary bypass graft; Z87.442 Personal history of urinary calculi; Z82.49 Family history of ischemic heart disease and other diseases of the circulatory system
CPT/HCPCS: 36415; 71045; 80053; 80061; 82550; 83036; 83615; 83735; 84443; 84484; 85025; 93005; 93306; 96372; 99285; G0378; J1644